=== PATIENT | male | born 1960 | race Two or more races ===

== ENCOUNTER 2018-02-16 09:27 | Inpatient (IN) | payer OTHER ==
[~2018-02-16] VITALS: Ht 188 cm; Wt 100.4 kg
[2018-02-16 10:15] LABS: BASOPHIL % 0.4 % (0-2); PLATELET COUNT 229 x10^3mcL (130-400); RED CELL DISTRIBUTION WIDTH 14.4 % (11.5-14.5)
[2018-02-16 10:31] LABS: CALCIUM 8.6 mg/dL (8.5-10.1); CARBON DIOXIDE 28.2 mmol/L (21-32); CHLORIDE SERUM 104 mmol/L (98-107); CREATININE SERUM 0.9 mg/dL (0.7-1.3); GFR1 > 60 mL/min; GLUCOSE SERUM 120 mg/dL (74-106); POTASSIUM SERUM 4.5 mmol/L (3.5-5.1); SODIUM SERUM 138 mmol/L (136-145)
[2018-02-16 10:35] LABS: ALBUMIN 3.6 g/dL (3.4-5.0); ALKALINE PHOSPHATASE 111 U/L (46-116); ALT/SGPT 20 U/L (16-63); AST/SGOT 30 U/L (15-37); BILIRUBIN TOTAL 0.67 mg/dL (0.20-1.00); CHOLESTEROL 234 mg/dL (<200); HDL CHOLESTEROL 33 mg/dL (40-60); LIPASE 122 IU/L (73-393); PHOSPHOROUS 2.6 mg/dL (2.5-4.9); TOTAL PROTEIN, SERUM 8.1 g/dL (6.4-8.2); URIC ACID 4.8 mg/dL (3.5-7.2)
[2018-02-16 13:19] LABS: MAGNESIUM 2.2 mg/dL (1.8-2.4)
[2018-02-16 13:31] LABS: T3 TOTAL 1.32 ng/mL
[2018-02-16 13:52] VITALS: BP 153/107
[2018-02-16 14:58] LABS: FREE T4 1.01 ng/dL (0.76-1.46); FREE THYROXINE INDEX 2.7 ug/dL (1.4-4.5); T4(THYROXINE) 8.3 ug/dL (4.7-13.3)
[2018-02-16 15:30] VITALS: BP 145/99
[2018-02-16 15:35] VITALS: BP 131/89
[2018-02-16 17:10] VITALS: BP 143/91
[2018-02-16] MEDS ORDERED: LISINOPRIL10 MG PO (17:45)
[2018-02-16 21:13] LABS: UA SPECIFIC GRAVITY 1.015 (1.005-1.035); microscopic required? YES; urine erythrocyte 2+ (NEGATIVE)
[2018-02-16 21:34] LABS: AMPHETAMINE QUAL UR NONE DETECTED (See below)
[2018-02-16 21:48] VITALS: BP 142/97
[2018-02-17 05:40] VITALS: BP 143/91
[2018-02-17 09:42] VITALS: BP 142/100
[2018-02-17 11:05] VITALS: BP 115/85
[2018-02-17] MEDS ORDERED: KEFLEX500 M1 PO (17:24)
[2018-02-17] MEDS ORDERED: LAC PO (17:25)
[2018-02-17] MEDS ORDERED: COL100 PO (17:25)
[2018-02-17] MEDS ORDERED: ELA10 PO (17:26)
[2018-02-17] MEDS ORDERED: SEN PO (17:31)
[2018-02-17] MEDS ORDERED: PROTONIX40 MG PO (17:31)
[2018-02-17] MEDS ORDERED: LIPI10 PO (17:58)
[2018-02-17 18:06] VITALS: BP 115/85
[2018-02-17 18:31] VITALS: BP 127/88
== END 2018-02-17 19:30 | disposition home or self-care (01) | DRG 391 ==
LOC: ED 09:27 → DU 12:33
PROVIDERS: Emergency Medicine; Family Medicine; Internal Medicine Gastroenterology
PROC: 0DB68ZX Excision of Stomach, Via Natural or Artificial Opening Endoscopic, Diagnostic (ICD-10-PCS; principal; 2018-02-17 09:30)
DX: K29.80 Duodenitis without bleeding (principal); N17.0 Acute kidney failure with tubular necrosis; N39.0 Urinary tract infection, site not specified; I10 Essential (primary) hypertension; R80.9 Proteinuria, unspecified; R13.10 Dysphagia, unspecified; G89.29 Other chronic pain; M54.5 Low back pain; E78.00 Pure hypercholesterolemia, unspecified; F17.210 Nicotine dependence, cigarettes, uncomplicated
CPT/HCPCS: 43235; 83880; 84439; C9113; J0696; J1200; J1610; J1885; J2250; J2310; J3010; J3490; J7030; Q0092